=== PATIENT | female | born 1990 | race Caucasian/White ===

== ENCOUNTER 2016-07-27 16:40 | Inpatient (IN) | payer OTHER ==
[2016-07-27 17:02] VITALS: BP 122/78; PULSE 102; RESP 16; TEMP 97
--- NOTE | 2016-07-27 18:27 | US ---
EXAMINATION TYPE: US OB >= 14 wk fetus DATE OF EXAM: 07/27/2016 6:00 PM COMPARISON: on PACS CLINICAL HISTORY: decelerations TECHNIQUE: Transabdominal (TA) GESTATIONAL AGE / DATING Physician Established: (35 weeks/5 days) EDC: 08/26/2016 Dates by Current Scan: (34 weeks/4 days) EDC: 09/03/2016 SURVEY IUP: Single PLACENTA: Fundal PREVIA: No Previa MIGUEL A: 3.5 cm Oligohydraminos CERVICAL LENGTH (transabdominal: norm > 3.0cm): 3.2 cm BIOMETRY PRESENTATION: Vertex LIE: Longitudinal BPD: 8.8 cm 35 weeks / 3 days HC: 31.6 cm 35 weeks / 3 days AC: 31.6 cm 35 weeks / 4 days FL: 6.6 cm 34 weeks / 0 days ESTIMATED WEIGHT IN GRAMS: 2595 grams ESTIMATED WEIGHT IN LBS/OZS: 5 lbs. 12 oz. WEIGHT PERCENTAGE BASED ON ESTABLISHED DATES: 32.7% HC/AC: 1.0 Normal FL/AC: 20.9 Normal HEART RATE: 143 bpm RHYTHM: Normal IMPRESSION: 1. Oligohydramnios with an MIGUEL A of 3.5. 2. Live IUP measuring 34 weeks 4 days with current heart rate of 143.
--- NOTE | 2016-07-27 18:29 | US ---
EXAMINATION TYPE: US OB BPP wo non-stress DATE OF EXAM: 07/27/2016 6:00 PM COMPARISON: on PACS CLINICAL HISTORY: decelerations. EXAM PERFORMED: Transabdominal (TA) BPP PARAMETERS: PRESENTATION: Vertex LIE: Longitudinal?? HEART RATE: 147bpm RHYTHM: Normal MIGUEL A: 3.7 cm DIAPHRAGM IMAGED: yes BPP SCORIN. Breathin (1 episode of breathing of 30 second duration in 30 minutes of scanning time) 2. Movement: 2 (at least 2 discrete body movements in 30 minutes) 3. Tone: 2 (1 episode of active flexion/extension of limb) 4. MIGUEL A: 0 (MIGUEL A index > 5cm) TOTAL SCORE: 6 / 8 1. Oligohydramnios with MIGUEL A of 3.7. 2. Single live intrauterine with a heart rate of 147.
--- NOTE | 2016-07-27 20:04 | P.HPOB ---
History of Present Illness H&P Date: 07/27/16 Chief Complaint: vaginal pressure 25-year-old presents at 35 weeks and 5 days complaining of vaginal pressure. She's been staying at [facility] for the last 24 hours which is a rehab center near the area. She has been using heroin throughout this last used one week ago. One week ago she was admitted for observation at [facility] due to possible heroin overdose. She had been discharged from there and sent to the rehab center. Her cervical exam is 1 thick and high. heart tones are 140-145 with moderate variability and reactive. She does have occasional variable decelerations down to the 100s lasting about 30 seconds with good return to baseline. Biophysical profile was done which is 6 out of 8, the 2 points off for low fluid. Her MIGUEL A was 3.48cm. For the last 40 minutes she has had no variable decelerations. Review of Systems All systems: negative Constitutional: Denies chills, Denies fever Eyes: denies blurred vision, denies pain Ears, nose, mouth and throat: Denies headache, Denies sore throat Cardiovascular: Denies chest pain, Denies shortness of breath Respiratory: Denies cough Gastrointestinal: Denies abdominal pain, Denies diarrhea, Denies nausea, Denies vomiting Genitourinary: Denies dysuria, Denies hematuria Musculoskeletal: Denies myalgias Integumentary: Denies pruritus, Denies rash Neurological: Denies numbness, Denies weakness Psychiatric: Denies anxiety, Denies depression Endocrine: Denies fatigue, Denies weight change Past Medical History Past Medical History: No Reported History Additional Past Medical History / Comment(s): OB history: She has had care with Dr Abdi in [facility]. She has had one miscarriage and 2 deliveries at 32 weeks and 36 weeks. A+, abs neg, Rub Imm, RPR NR, Hep b neg, HIV NR. history of heroin use, last used 07/20/16 History of Any Multi-Drug Resistant Organisms: None Reported Additional Past Surgical History / Comment(s): D&C, July 2016 Past Anesthesia/Blood Transfusion Reactions: No Reported Reaction Past Psychological History: No Psychological Hx Reported Smoking Status: Never smoker Past Drug Use History: Heroin, IV Drug Use - Past Family History Mother Family Medical History: No Reported History Medications and Allergies Home Medications Medication Instructions Recorded Confirmed Type Pnv with Ca,No.72/Iron/FA 1 tab PO DAILY 07/27/16 07/27/16 History [ Plus Tablet] Allergies Allergy/AdvReac Type Severity Reaction Status Date / Time Penicillins Allergy Rash/Hives Verified 07/27/16 16:44 Exam Osteopathic Statement: *. No significant issues noted on an osteopathic structural exam other than those noted in the History and Physical/Consult. - Vital Signs Vital signs: Vital Signs Temp Pulse Resp BP Pulse Ox 07/27/16 18:14 97.0 F L 102 H 16 122/78 100 07/27/16 16:45 97.0 F L 102 H 16 122/78 Intake and Output 07/27/16 07/27/16 07/27/16 06:59 14:59 22:59 Other: Weight 68.946 kg Patient Weight 07/28/16 06:59 Weight 68.946 kg Heart: Regular rate and rhythm Lungs: Clear to auscultation bilaterally Abdomen: Soft, nontender Extremities: Negative Homans sign Assessment and Plan (1) Oligohydramnios antepartum Status: Acute Plan: 1. Patient is admitted for observation due to variables on her heart tone strip. These variables are seeming to resolve. The heart tones are showing moderate variability and reactivity. I discussed the case with Dr. Camargo, the MFM at [facility] in [place]. As long as the heart tones remain reassuring, oligohydramnios is not an indication for delivery until 37-38 weeks. According to my ACOG guidelines and MFM recommendations she will be sent back to [facility] for follow-up with her own physician.
[2016-07-27] MEDS ORDERED: LACTATED RINGERS 1,000 ML IV SCH (21:00)
[2016-07-27] MEDS ORDERED: CALCIUM CARBONATE 500 MG CHEWABLE PO PRN (21:44)
--- NOTE | 2016-07-28 10:09 | P.DS ---
Providers Date of admission: 07/27/16 18:07 Expected date of discharge: 07/28/16 Attending physician: Mariam Fishman Primary care physician: Stated None - Discharge Diagnosis(es) (1) Oligohydramnios antepartum Current Visit: Yes Status: Acute Hospital Course: 25-year-old presented at 35 weeks and 5 days with vaginal pressure. She was found to have some variables on her heart rate monitoring strip and a biophysical profile showed that she had an MIGUEL A of 3.5 cm. I spoke with maternal - medicine specialist and [facility] in [place]. After they' re saying to monitor her for a little while and then she was probably okay to go home because oligohydramnios is an indication for induction until 37 weeks. However, the heart tones were obtained and shows some sharp variable decelerations. I kept her overnight at the advice of the maternal medicine specialist, Dr. Renay Gross, and repeated the MIGUEL A today. MIGUEL A today is 1.8 cm. The patient has been using heroin during her so the drapery maker is concerned about taking care of the baby in this hospital. I discussed the case with MFM specialist again and will be transferring her to [facility] in [place] for likely delivery. She did have 2 doses of steroids last week when she went to [facility] in [place] for possible heroin overdose. She'll be transferred from here to [facility] via ambulance. Plan - Discharge Summary Discharge Medication List Pnv with Ca,No.72/Iron/FA [ Plus Tablet] 1 tab PO DAILY 07/27/16 [ History]
--- NOTE | 2016-07-28 11:08 | US ---
EXAMINATION TYPE: US OB limited DATE OF EXAM: 07/28/2016 10:28 AM COMPARISON: Previous study dated 07/27/2016. CLINICAL HISTORY: MIGUEL A recheck. EXAM PERFORMED: Transabdominal GESTATIONAL AGE / DATING Physician Established: (35 weeks/6 days) EDC: 08/26/2016 No growth performed on today?s study per ordering physician SURVEY MIGUEL A: 1.8 cm Oligohydramnios HEART RATE: 137 bpm RHYTHM: Normal ordered for MIGUEL A recheck only, Dr Fishman present for ultrasound. IMPRESSION: OLIGOHYDRAMNIOS.
== END 2016-07-28 11:03 | disposition short-term general hospital (02) | DRG 781 ==
LOC: FBPOP 16:40 → 4FBP 18:07
PROVIDERS: ADMIT Obstetrics & Gynecology; ATTEND Obstetrics & Gynecology
DX: O41.03X0 Oligohydramnios, third trimester, not applicable or unspecified (principal); O99.323 Drug use complicating pregnancy, third trimester; O76 Abnormality in fetal heart rate and rhythm complicating labor and delivery; Z3A.35 35 weeks gestation of pregnancy; F11.10 Opioid abuse, uncomplicated; Z79.899 Other long term (current) drug therapy
CPT/HCPCS: 59025; 76805; 76815; 76819; 80306; 84112; 99213